=== PATIENT | male | born 1995 | race Two or more races ===

== ENCOUNTER → 2017-06-28 11:19 | Day surgery (SDC) | payer OTHER ==
--- NOTE | 2017-06-15 06:49 | HP ---
PREOPERATIVE HISTORY AND PHYSICAL: DATE OF SURGERY: 06/28/17 DATE OF OFFICE VISIT: 06/13/17 ATTENDING SURGEON: Dinora Uriarte MD * (DICTATED BY OLGA FAUST) PROCEDURE: Right knee arthroscopy, possible meniscus repair. CHIEF COMPLAINT: Right knee pain. HISTORY OF PRESENT ILLNESS: Yunier is a 22-year-old male who was referred to us by Dr. Munoz. He states that on 06/01/17, he was sitting and twisted his knee. He felt an immediate pop and pain in his knee. Since that time, he has pain in the lateral aspect of his knee. He rates as a 3/10. That is worse with squats. He also reports it is catching laterally. He states that his knee was locked; however, it is not locked anymore. He continues to have swelling. He limps due to the pain. He has tried naproxen, which is minimally helpful. He states that his knee feels stable. Dr. Munoz ordered an MRI. Otherwise, he has had no treatment of the knee. He has a history of ACL and meniscectomy performed in [place] in with hamstring autograft and history of meniscus repair in [place] in 2013. He has not had any issues after surgery until his injury on 06/01/17. He denies numbness, tingling, fevers, chills, and is doing well otherwise. PAST MEDICAL HISTORY: Denies current problems. PAST SURGICAL HISTORY: Right knee surgery as mentioned above. MEDICATIONS: Naproxen 500 mg 1 tablet twice a day as needed for pain. ALLERGIES: No known drug allergies. FAMILY HISTORY: Positive for paternal heart disease. SOCIAL HISTORY: He is a [employer] student. He denies tobacco use. He reports occasional alcohol consumption. He denies illegal drug use. REVIEW OF SYSTEMS: A 14-point review of systems was reviewed with the patient. Positive for current complaint. Otherwise, negative. PHYSICAL EXAMINATION GENERAL: A 22-year-old, well-developed, well-nourished male, in no acute distress, alert and oriented x3 with appropriate mood and affect. VITAL SIGNS: Height 75, weight 225, blood pressure 115/80, temperature 97.2, BMI 28.1. HEENT: Normocephalic, atraumatic. PERRLA. Throat clear. NECK: Supple. PULMONARY: Lungs are clear to auscultation bilaterally. No wheezing, rhonchi, or rales. CARDIO: Regular rate and rhythm. S1, S2. No murmurs, gallops, or rubs. No edema. ABDOMEN: Positive bowel sounds, soft, and nontender. NEURO: Alert and oriented x3. Cranial nerves grossly intact. Sensation is intact to light touch. MUSCULOSKELETAL: Right lower extremity, skin is intact. No warmth or erythema. There is moderate effusion. Tenderness to palpation near the lateral joint line. Well healed surgical incision. Range of motion from 0 to 130 degrees. Stable with varus and valgus stress. Stable Bi. Negative posterior drawer. Positive Ed. +2 posterior tibialis pulse. Sensation intact to light touch distally. Left lower extremity, skin is intact. No warmth or erythema. Nontender to palpation. Full range of motion. Pain free. Stable ligament. +2 posterior tibialis pulse. Sensation intact to light touch distally. DIAGNOSTIC STUDIES: Multi-view x-rays of the right knee revealed no evidence of acute fracture or dislocation. MRI of the right knee revealed intact ACL with a transtibial tunnel technique and evidence of bucket-handle lateral meniscus tear. IMPRESSION: Left knee lateral meniscus tear. PLAN: The patient is scheduled to undergo a right knee arthroscopy, possible meniscus repair on 06/28/[address] Uriarte. Risks of surgery to include infection, bleeding, damage to nerves, vessels, surrounding structures, risk of anesthesia, numbness, history of DVT or PE, history of anesthesia, history of failure of the repair, and risk of arthritis were explained to the patient. The patient had agreed to undergo a surgery. He has a prior inside out repair of the meniscus. Therefore, there is a chance that his meniscus does not repair. However, attempts will be made to repair the meniscus. He will follow up with Dr. Uriarte in 10 to 14 days postop for followup and suture removal. Percocet will be used for postop and pain management. OLGA FAUST [id number]/[facility] #: [id number] [facility]
[~2017-06-28 11:19] MED LIST: Buffered Lidocaine 0.9% SYRIN* 5 ML/SYR SYRINGE INTRADERM ONE; Buffered Lidocaine 0.9% SYRIN* 5 ML/SYR SYRINGE ONE; Bupivacaine 0.25% SDV* 30 ML ONE; Clindamycin 900 MG IVPREMIX(* 900 MG/50 ML SDV IV ONE; Famotidine IV* 10 MG/ML 2 ML (20 mg) IV ONE; Famotidine IV* 10 MG/ML 2 ML (20 mg) ONE; KETAMINE HCL* 50 MG/ML 10 ML VIAL ONE; Ketorolac INJ* 30 MG/ML 1 ML VIAL ONE; Lidocaine 2% PF * 5 ML VIAL ONE; Midazolam* 1 MG/ML 5 ML VIAL (5 MG) ONE; Morphine INJ* 2 MG/ML 1 ML SYRINGE IV PRN; Ondansetron INJ* 2 MG/ML VIAL ONE; PROCHLORPERAZINE INJ 5 MG/ML 2 ML VIAL IV PRN; Propofol* 10 MG/ML 20 ML BTL IV PUSH ONE; fentaNYL* 50 MCG/ML 2 ML VIAL (100 MCG VIAL) IV PRN; fentaNYL* 50 MCG/ML 2 ML VIAL (100 MCG VIAL) ONE; oxyCODONE/Acetamin 5/325 MG* TAB ONE; oxyCODONE/Acetamin 5/325 MG* TAB PO PRN
[2017-06-28 15:16] VITALS: BP 144/71
--- NOTE | 2017-06-30 02:46 | OP ---
DATE OF SURGERY: 06/28/17 [facility] DATE OF : 89 ATTENDING SURGEON: Dinora Uriarte MD PATIENT ACCESS COORDINATOR: OLGA Dai ANESTHESIOLOGIST: Dr. Frank Hutchins. ANESTHESIA: Spinal. PRE-OP DIAGNOSIS: Right knee lateral meniscus tear. POST-OP DIAGNOSIS: Right knee lateral meniscus tear. OPERATIVE PROCEDURE: Right knee arthroscopy with lateral meniscus repair as well as anterior synovectomy, bone marrow aspiration. COMPLICATIONS: None. ESTIMATED BLOOD LOSS: Minimal. IMPLANTS USED: Three Nova and Nephew Fast-Fix anchor. INDICATIONS: Yunier Schroeder is a 22-year-old male who, on 06/01/17, was sitting and twisted his knee, felt pop and pain. He had locking in the knee; it was laterally based. It is worse with squats. He has been limping. He was diagnosed with a bucket handle lateral meniscus tear. He has a previous history of right knee ACL reconstruction. He had both partial meniscectomy in 2009 and then he had a history of meniscus repair in 2013. He has not had any injuries since this time. After an MRI was used to confirm the diagnosis, risks and benefits of surgical versus non-operative treatment were discussed at length and he elected to proceed with the surgery. We did discuss that if this is poor quality tissue, he would benefit from partial meniscectomy. Risks include, but are not limited to bleeding, infection, damage to nerves, vessels, surrounding structures, wound nonhealing, persistent pain, need for further surgery, scarring, stiffness, incomplete relief of symptoms, risk of anesthesia , and risk of DVT. He verbalized understanding. DESCRIPTION OF PROCEDURE: The patient was greeted in the preoperative area by the attending surgeon. The correct extremity was marked and consent was confirmed. The patient was then brought back to the operating suite, where he underwent spinal anesthesia. After the spinal anesthetic was done, the right leg was prepared with a lateral post and an unsterile tourniquet high proximal on the right leg. The right leg was then prepped and draped in the usual sterile fashion beginning with chlorhexidine soap, scrub, and alcohol wipe and a final prep of ChloraPrep. After appropriate surgical pause indicating side, site, procedure, and administration of antibiotics, an 18-gauge needle was used to inject 30 cc of sterile saline into the intraarticular joints. The lateral portal was made in an outside-in fashion. The scope was introduced to the joint. There were grade 0 to 1 changes of the patellofemoral joint. The medial and lateral gutters were examined without loose debris. The scope was brought into the notch and there was flipped meniscus tear as well as abundant synovitis. The shaver was then used to debride this back. There was thick synovial shelf anteriorly that was carefully removed using the shaver as well as the electrocautery device to maintain hemostasis. ACL was found to be intact. The lateral meniscus obviously had a bucket-handle tear. The knee was placed in a [id number] position and then reduced. This was the full body of the meniscus. It was okay quality tissue. The knee was then placed in just short of full extension with valgus stress. The medial compartment was examined. There were grade 0 to 1 changes in medial femoral condyle and medial tibial plateau. The medial meniscus was intact. Any remaining synovitis was then removed at this point. The knee was then placed in a [id number] position. An incision was made to repair the meniscus. This would have been the entire body of the meniscus. He is 22 years old. It had evidence of a previous repair before, but there was good quality tissue and there was good bleeding bed. The discussion was made to repair this for functionality of the patient knowing that he had previous repair before. The meniscus rasp was used to thoroughly irritate the tissues on both the meniscus side as well as the peripheral rim. Once this was done, three Nova and Nephew Fast-Fix anchors were then used to secure the meniscus back. Once this was done, the scope was removed from the joint and the knee was taken through range of motion and flexed and extended several times and scope was repositioned back. This was found was to be secured. There was no displacement of the meniscus that was easily displaceable previously. The probe was then used to try to gently tuck at the meniscus and again, it was not displaceable. At this point, attention was directed to the notch and a Steinmann pick was then used as a bone marrow aspirate to help with the healing of the meniscus. The fluid was turned off and backflow blush of fluid was identified to confirm that the pick had been sufficiently deep enough. Once this was complete, all fluid and debris was removed from the knee. The portals were closed with 3-0 nylon. Sterile dressings as well as Cryo/Cuff were placed and a hinged knee brace locked from 0 to 70 degrees. He was awoken from anesthesia and transferred to PACU in stable condition. POSTOPERATIVE PLAN: He will be nonweightbearing with range of motion from 0 to 70 degrees for the first 4 weeks. He will be discharged on pain medications as well as antibiotics. DVT prophylaxis considered, but deferred due to no previous personal or family history. I will see the patient back in 10 to 14 days. [id number]/[facility] #: [id number] [facility]
== END | disposition home or self-care (01) ==
LOC: OR 11:19
PROVIDERS: ATTEND Orthopaedic Surgery
DX: S83.251A Bucket-handle tear of lateral meniscus, current injury, right knee, initial encounter (principal); X50.9XXA Other and unspecified overexertion or strenuous movements or postures, initial encounter; Y92.9 Unspecified place or not applicable
CPT/HCPCS: A9270-GY; J1885; J2250; J2405; J2704; J3010